=== PATIENT | male | born 1965 | race Caucasian/White ===

== ENCOUNTER → 2017-04-15 | Outpatient (CLI) | payer OTHER ==
[~2017-04-15] MED LIST: CITALOPRAM HBR PO; VENLAFAXINE HCL PO; ZOLPIDEM TARTRATE PO
[2017-04-15 09:16] LABS: MICROSCOPIC NOT IND
[2017-04-15 09:18] LABS: CULTURE INDICATED? NO
[2017-04-15 09:24] LABS: BASOPHILS # (AUTO) 0.05 x10^3/uL (0-0.1); BASOPHILS % (AUTO) 1 % (0-1); EOSINOPHILS # (AUTO) 0.13 x10^3/uL (0-0.4); EOSINOPHILS % (AUTO) 2 % (1-7); LYMPHOCYTES # (AUTO) 1.61 x10^3/uL (1-3.4); LYMPHOCYTES % (AUTO) 30 % (22-44); MD NO; MEAN CORPUSCULAR HEMOGLOBIN 29.5 pg (27.5-34.5); MEAN CORPUSCULAR HGB CONC 34.2 g/dL (33.2-36.2); MEAN CORPUSCULAR VOLUME 86.3 fL (81-97); MEAN PLATELET VOLUME 8.6 fL (7.4-10.4); MONOCYTES # (AUTO) 0.53 x10^3/uL (0.2-0.8); MONOCYTES % (AUTO) 10 % (2-9); NEUTROPHILS # (AUTO) 3.08 x10^3/uL (1.8-6.8); NEUTROPHILS % (AUTO) 57 % (42-75); PLATELET COUNT 200 x10^3/uL (130-400); RED BLOOD COUNT 5.25 x10^6/uL (4.38-5.82); RED CELL DISTRIBUTION WIDTH 15.1 % (9.4-14.8)
[2017-04-15 09:28] LABS: ALANINE AMINOTRANSFERASE 68 U/L (12-78); ALBUMIN 4.5 g/dL (3.4-5.0); ANION GAP 7 mmol/L (5-15); CALCIUM 9.3 mg/dL (8.5-10.1); CHLORIDE 103 mmol/L (98-107); CREATININE 1.11 mg/dL (0.7-1.3)
[2017-04-15 09:30] LABS: ALKALINE PHOSPHATASE 70 U/L (45-117); BILIRUBIN,TOTAL 1.3 mg/dL (0.2-1.0); TOTAL PROTEIN 7.7 g/dL (6.4-8.2)
[2017-04-15 10:12] LABS: INTERNATIONAL NORMALIZED RATIO 1.07 (0.93-1.1); PROTHROMBIN TIME 11.1 Seconds (9.6-11.5)
== END ==
LOC: STAR 08:11
PROVIDERS: ATTEND Neurological Surgery
DX: Z01.818 Encounter for other preprocedural examination (principal)
CPT/HCPCS: 36415; 71046; 80053; 81003; 85025; 85610; 85730; 93005

== ENCOUNTER 2017-04-20 05:42 | Inpatient (IN) | payer OTHER ==
[~2017-04-20] VITALS: Ht 179.1 cm; Wt 98.3 kg
[2017-04-20] MEDS ORDERED: LACTATED RINGERS 1,000 ML IV SCH (06:23)
[2017-04-20] MEDS ORDERED: BUPIVACAINE/PF 0.5% ONE (06:54)
[2017-04-20] MEDS ORDERED: EPINEPHRINE 1 MG/ML, 1ML ONE (06:54)
[2017-04-20] MEDS ORDERED: BACITRACIN 50,000 UNIT ONE (06:54)
[2017-04-20] MEDS ORDERED: THROMBIN 5,000 UNIT VIAL TP ONE (06:54)
[2017-04-20] MEDS ORDERED: REMIFENTANIL 2 MG ONE ×2 (07:11→08:33)
[2017-04-20] MEDS ORDERED: LIDOCAINE-MPF 2% ,5ML ONE (07:13)
[2017-04-20] MEDS ORDERED: PROPOFOL 10 MG/ML, 20ML ONE ×14 (07:13→10:11)
[2017-04-20] MEDS ORDERED: WATER-INJECTION,STERILE 10 ML IV ONE ×4 (07:13)
[2017-04-20] MEDS ORDERED: ROCURONIUM 10 MG/ML,10ML ONE (07:13)
[2017-04-20] MEDS ORDERED: MIDAZOLAM 1 MG/ML, 2ML ONE (07:22)
[2017-04-20] MEDS ORDERED: PHENYLEPHRINE 10 MG/ML ONE (07:51)
[2017-04-20] MEDS ORDERED: CEFAZOLIN 1,000 MG ONE ×2 (08:01)
[2017-04-20] MEDS ORDERED: GLYCOPYRROLATE 0.2MG/1ML, 5ML ONE ×4 (08:04→08:32)
[2017-04-20] MEDS ORDERED: FENTANYL PF 250 MCG/5ML ONE (08:32)
[2017-04-20] MEDS ORDERED: ONDANSETRON 2MG/ML, 2ML ONE (09:26)
[2017-04-20] MEDS ORDERED: REMIFENTANIL 1 MG ONE (09:36)
[2017-04-20] MEDS ORDERED: HYDROmorphone 2 MG/ML, 1ML ONE (09:39)
[2017-04-20] MEDS ORDERED: MEPERIDINE/PF 25MG/0.5ML IVPush PRN (10:00)
[2017-04-20] MEDS ORDERED: OXYcodone 5 MG/5 ML ORAL.SOL UDC PO PRN (10:00)
[2017-04-20] MEDS ORDERED: HYDROmorphone 1 MG/ML, 1ML IV PRN (10:00)
[2017-04-20] MEDS ORDERED: HYDROcodone/APAP 7.5-325MG/15ML UDC PO PRN (10:00)
[2017-04-20] MEDS ORDERED: ONDANSETRON 2MG/ML, 2ML IVPush PRN (10:00)
[2017-04-20] MEDS ORDERED: ACETAMINOPHEN 325 MG TABLET PO PRN (10:00)
[2017-04-20] MEDS ORDERED: FENTANYL PF 100 MCG/2ML IV PRN (10:00)
[2017-04-20] MEDS ORDERED: ACETAMINOPHEN 650 MG/20.3 ML UDC ONE (12:03)
[2017-04-20] MEDS ORDERED: OXYcodone 5 MG/5 ML ORAL.SOL UDC ONE (12:04)
[2017-04-20] MEDS ORDERED: ONDANSETRON 2MG/ML, 2ML IV PRN (13:00)
[2017-04-20] MEDS ORDERED: MAGNESIUM HYDROXIDE 8%, 30ML UDC PO PRN (13:00)
[2017-04-20] MEDS ORDERED: DIPHENHYDRAMINE 50 MG/ML, 1ML IVPush PRN (13:00)
[2017-04-20] MEDS ORDERED: HYDROcodone/APAP 5/325 TABLET PO PRN (13:00)
[2017-04-20] MEDS ORDERED: HYDROmorphone 2 MG/ML, 1ML IM PRN (13:00)
[2017-04-20] MEDS ORDERED: BISACODYL 10 MG SUPP PR PRN (13:00)
[2017-04-20] MEDS ORDERED: DIPHENHYDRAMINE 50 MG CAPSULE PO PRN (13:00)
[2017-04-20] MEDS ORDERED: LABETALOL 5MG/ML, 20ML IV PRN (13:00)
[2017-04-20] MEDS ORDERED: PROMETHAZINE 25 MG/ML, 1ML IM PRN (13:00)
[2017-04-20] MEDS ORDERED: METHOCARBAMOL 750 MG TABLET PO PRN (13:00)
[2017-04-20] MEDS ORDERED: DIPHENHYDRAMINE 50 MG/ML, 1ML IM PRN (13:00)
[2017-04-20] MEDS ORDERED: OXYcodone/APAP 5/325MG TABLET PO PRN (13:00)
[2017-04-20 13:34] VITALS: BP 141/92
[2017-04-20] MEDS: NS + 20MEQ KCL 1,000 ML IV SCH ×2 (14:54→23:00)
[2017-04-20] MEDS: CEFAZOLIN PMX 1GM/50ML 50 ML IVPB SCH (16:57)
[2017-04-20] MEDS ORDERED: ZOLPIDEM 5MG TABLET PO PRN (17:00)
[2017-04-20 19:30] VITALS: BP 129/92
[2017-04-20 23:37] VITALS: BP 125/76
[2017-04-21] MEDS: CEFAZOLIN PMX 1GM/50ML 50 ML IVPB SCH (00:27)
[2017-04-21 02:57] VITALS: BP 119/76
[2017-04-21] MEDS ORDERED: ENOXAPARIN 40 MG/0.4 ML SQ SCH (06:00)
[2017-04-21 06:48] VITALS: BP 136/76
[2017-04-21] MEDS ORDERED: SENNA/DOCUSATE TABLET PO SCH (09:00)
[2017-04-21] MEDS: NS + 20MEQ KCL 1,000 ML IV SCH (09:00)
[2017-04-21] MEDS ORDERED: CITALOPRAM 20 MG TABLET PO SCH (09:00)
[2017-04-21] MEDS ORDERED: VENLAFAXINE 75MG TABLET PO SCH (09:00)
[2017-04-21 12:00] VITALS: BP 136/70
[2017-04-21] MEDS ORDERED: OXYC-302 PO (12:13)
[2017-04-21] MEDS ORDERED: METH750T87 PO (12:13)
== END 2017-04-21 12:51 | disposition home or self-care (01) | DRG 472 ==
LOC: ORIP 05:42 → 4NOR 12:46
PROVIDERS: ADMIT Neurological Surgery; ATTEND Neurological Surgery
PROC: 0RB30ZZ Excision of Cervical Vertebral Disc, Open Approach (ICD-10-PCS; 2017-04-20)
PROC: 4A11X4G Monitoring of Peripheral Nervous Electrical Activity, Intraoperative, External Approach (ICD-10-PCS; 2017-04-20)
PROC: 0RG20A0 Fusion of 2 or more Cervical Vertebral Joints with Interbody Fusion Device, Anterior Approach, Anterior Column, Open Approach (ICD-10-PCS; principal; 2017-04-20 07:30)
DX: M48.02 Spinal stenosis, cervical region (principal); M47.12 Other spondylosis with myelopathy, cervical region; M47.22 Other spondylosis with radiculopathy, cervical region
CPT/HCPCS: 36415; 72040; 86850; 86900; C1713; J0171; J0690; J1170; J1650; J2250; J2405; J2704; J3010; J3480; J3490; C1762; J2370; J7120